=== PATIENT | female | born 1990 | race Caucasian/White ===

== ENCOUNTER 2023-04-23 13:38 | Emergency (ER) | payer BC, SELFPAY ==
[2023-04-23 13:55] VITALS: BP 146/107
[2023-04-23 14:28] VITALS: BMI 28.5
--- NOTE | 2023-04-23 14:51 | ED.GENMED ---
History of Present Illness
General
Chief Complaint: Back Pain
Source: patient
Exam Limitations: none
Time Seen by Provider: 04/23/23 14:28
Nursing documentation reviewed up to this point in time: agreed with
Travel History
Have you had any contact with someone who has COVID-19?: No
Do you have any symptoms of coronavirus? Fever > 100 degrees, chills, cough, shortness of breath, sore throat, loss of taste or smell, muscle aches, or headache?: No
History of Present Illness
History of Present Illness:
pt is a 32 y/o F with h/o transitional vertebrae called Bertolotti syndrome
Recently seen by Dr. bear from orthopedics/spine from [facility] office presents with ongoing lower back pain into her hips and down the backs of her legs to her knees with
[id number]-[id number] in her posterior thighs. 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
8 years. About a month ago she started having more lower back pain so she went to urgent care. She had an outpatient x-ray urgent care showing an abnormal L5. She was diagnosed with Bertolotti syndrome and saw orthopedic/spine last week. He gave
her meloxicam, methylprednisolone for 6 days and Robaxin. Patient was wishing to avoid opiates. She says that after leaving his office she started having a numbness in the back of her legs. She feels like a pins and needle sensation that stops at
her knees. She is not having any weakness, incontinence, perineal anesthesia, fevers or chills. She does not use any active IV drugs. She called the office yesterday and spoke with Dr. Alicea who prescribed her PT. Patient says that she has
not started PT but today she was more uncomfortable so she decided to come in. Patient says the Robaxin has not helped her at night.
Past History
Past History
ED Past Medical History: Asthma, GERD and Other (Colitis, hepatitis C)
ED Past Surgical History: None
Social History
Tobacco: Former smoker
Alcohol: None
Drug: Former user
Personal:
Living: with family
Employment: Employed
Family History
Family History: Unable to obtain
Review of Systems
Review of Systems
Allergies reviewed?: Yes
All Other Systems: Not applicable
Phy Exam
Physical Exam
Physical Exam:
GENERAL: Alert , in no apparent distress, comfortable at rest
HEAD: NCAT
NECK: no midline tenderness, active ROM intact, no paraspinal muscle tenderness;
CARDIAC: Regular rate and rhythm, no edema
LUNGS: Clear breath sounds bilaterally, no acute respiratory distress, no wheezes/rales/rhonchi
ABDOMEN: Soft, without focal tenderness, no r/g, no cvat, normal bowel sounds, nondistended
NEUROLOGICAL: Alert and oriented, no focal neuro deficits, CN intact, 5/5 strength, sensation intact to gross touch
SKIN: Warm and dry,
MUSCULOSKELETAL: No edema, well perfused. Normal inspection of the legs
Nontender hips and legs to palpation
Patient can fully flex at her hip and rotate, she has minimal discomfort, there is some SI joint tenderness
Back: No midline tenderness, mild dextroscoliosis, bilateral SI joint tenderness, no swelling
She has not having a classic straight leg raise on either side
PSYCH: Normal and appropriate interaction.
Course
Orders/Labs/Results
Orders:
Orders
04/23/23 14:51
Bladder Scan- Treatment ONCE
04/23/23 15:02
Urinalysis Reflex To Culture Urgent
Date Specimen was Collected: 04/23/23
Time Specimen was Collected: 14:54
04/23/23 15:12
Ketorolac [Toradol] 30 mg IM NOW STA
Prednisone [Deltasone] 50 mg PO NOW STA
Vital Signs
Initial and Last Documented VS:
Initial Vital Signs
Temp Pulse Resp BP Pulse Ox
98.2 F 84 16 146/107 97
04/23/23 13:55 04/23/23 13:55 04/23/23 13:55 04/23/23 13:55 04/23/23 13:55
Last Documented Vital Signs
Temp Pulse Resp BP Pulse Ox
98.2 F 84 16 123/84 98
04/23/23 13:55 04/23/23 16:21 04/23/23 16:21 04/23/23 16:21 04/23/23 16:21
MDM/Problems Addressed
Differential Diagnosis Includes:
Spinal stenosis, lumbar radiculopathy, arthritis
MDM/Problems Addressed:
32-year-old female with a transitional lumbosacral vertebra which is a congenital syndrome called Bertolotti syndrome presents for lower back pain with [id number]-[id number] behind both legs down to her knees. Patient has not had any recent trauma. She
has had ongoing back pain for at least a month. She saw an orthopedist last week and was given steroids and muscle relaxers without relief. Patient continues to have the symptoms and then developed the pins and needle sensation. She is not having
any weakness or incontinence. On exam she is well-appearing, she is seated and appears comfortable, she has most symptoms in the sitting position. She has full strength and range of motion of her back and lower extremities. There is no swelling
or color change. Her pulses are intact, she has negative straight leg raise on either side but does report a constant pins and needle sensation. Without new trauma I do not feel the need for repeated x-rays. Her PVR was 70 mL. Her UA was
negative. I spoke with her orthopedist to also did not feel strongly about her getting an MRI urgently without any weakness objectively.
Patient has no red flag symptoms otherwise to be concern for cauda equina and at this time will be discharged home. His recommendation was to offer her gabapentin 300 mg at night before bed in place of the Robaxin if it the Robaxin was not helpful.
He had offered this yesterday but she had declined. I spoke with her about it now and she seems agreeable.
Will do a steroid burst prednisone 50 mg once a day and recommend Tylenol as well for pain
*Critical Care Note
Total Time (30-74mins, 75-104mins- exclusive of procedures): Not Applicable
ED Attending Note
-
Portions of this chart may have been created with voice recognition software.� Occasional wrong word or��sound alike� substitutions may have occurred due to the inherent limitations of voice recognition software.
Discharge Plan
Departure
Patient Disposition: Home (Routine Discharge)
Date of Disposition: 04/23/23
Time of Disposition: 15:57
Patient with high blood pressure during this ER visit?: No
Condition: Fair
Covid-19: Not Applicable
Discharge Problem:
Back pain
Instructions: Low Back Pain (DC)
Prescriptions:
New
prednisone 50 mg tablet
50 mg PO DAILY Qty: 5 0RF
gabapentin 300 mg capsule
300 mg PO HS PRN (Reason: pain) Qty: 10 0RF
No Action
mupirocin 2 % ointment
1 applic topical TID Qty: 22 0RF
amoxicillin-pot clavulanate 875-125 mg tablet
1 tab PO BID Qty: 14 0RF
ketorolac 10 mg tablet
10 mg PO QID PRN (Reason: pain) Qty: 20 0RF
Referrals:
Radha Marsh, DO [Active] - Follow up in 5-7 days
Bianca Taylor PA-C [Family Provider] -
Activity Restrictions/Additional Instructions:
For your back pain your orthopedist wants us to try gabapentin [address] of the muscle relaxer Robaxin. Stop taking the Robaxin and start the gabapentin. It may make you sleepy but should not cause any other side effects.
For pain you can also try Tylenol 3 times a day.
I wrote for a burst of steroids, starting tomorrow 50 mg once a day for 4 more days. While you are on the steroids probably avoid the meloxicam. You can use the Tylenol instead. After the steroids you can restart the meloxicam.
If you are still having the numbness or tingling you can call your doctor and he may consider ordering an MRI. If you ever develop any weakness, incontinence, fever or chills, severe pain please return immediately.
Interventions
Interventions:
*Risk Screen - Suicide Last Done: 04/23/23 14:28
*General Assessment Last Done: 04/23/23 14:28
*Neglect/Abuse Screening Last Done: 04/23/23 14:28
ED- Fall Risk Assessment Last Done: 04/23/23 14:28
*ED COVID-19 Vaccine History Last Done: 04/23/23 14:28
*Nursing Disposition Last Done: 04/23/23 16:21
ED-Musculoskeletal Assessment Last Done: 04/23/23 14:28
Discharge Date and Time
Discharge Date/Time: 04/23/23 16:22
[2023-04-23 15:14] LABS: Urine Albumin Negative (Neg - Trace); Urine Bilirubin Negative (Negative); Urine Character Clear (Clear); Urine Color Yellow; Urine Glucose Negative (Negative); Urine Ketone Negative (Negative); Urine Leukocyte Negative (Negative); Urine Nitrite Negative (Negative); Urine Occult Blood Negative (Negative); Urine Urobilinogen Negative (Neg - 1+)
[2023-04-23] MEDS: DELTASONE 50 MG PO (15:25)
[2023-04-23] MEDS: TORADOL 30 MG IM (15:25)
[2023-04-23 16:21] VITALS: BP 123/84
--- NOTE | 2023-04-23 16:21 | EDRN ---
Reviewed discharge instructoons with patient. Verbalized understanding. Ambulated with steady gait to the lobby.
== END 2023-04-23 16:22 | disposition home or self-care (01) ==
LOC: EMR 13:38
PROVIDERS: Physician Assistant; EMERGENCY PHYSICIAN Emergency Medicine; FAMILY PHYSICIAN Physician Assistant Medical
DX: M54.9 Dorsalgia, unspecified (principal); Z87.891 Personal history of nicotine dependence; Z86.19 Personal history of other infectious and parasitic diseases
CPT/HCPCS: 99284; 96372; 51798; 81003